=== PATIENT | male | born 1980 | race Caucasian/White ===

== ENCOUNTER → 2024-06-28 13:18 | Outpatient (REF) | payer OTHER, SELFPAY | LOC: HWRAD 13:18 | PROVIDERS: ATTENDING PHYSICIAN Family Medicine | DX: N39.46 Mixed incontinence (principal); R32 Unspecified urinary incontinence | CPT/HCPCS: 76857 ==

== ENCOUNTER → 2024-07-04 09:56 | Outpatient (REF) | payer OTHER, SELFPAY | LOC: HWRAD 09:56 | PROVIDERS: ATTENDING PHYSICIAN Family Medicine | DX: N39.43 Post-void dribbling (principal) | CPT/HCPCS: 76700 ==